=== PATIENT | female | born 1975 | race Caucasian/White ===

== ENCOUNTER 2021-08-11 08:30 | Emergency (ER) | payer OTHER ==
[~2021-08-11 08:30] MED LIST: KEFLEX250 MG PO; NORCO 5-325 TA1 EACH PO; PERCOCET 5-3251 EACH PO; ZOFRAN8 MG PO
[2021-08-11] MEDS ORDERED: MEDROL 4MG DOSEP4 MG PO (10:42)
[2021-08-11] MEDS ORDERED: NORCO 5-325 TA1 EACH PO (10:42)
== END 2021-08-11 10:52 | disposition home or self-care (01) ==
LOC: FER 08:30
DX: M54.50 Low back pain, unspecified (principal); M54.6 Pain in thoracic spine; I10 Essential (primary) hypertension; V49.50XA Passenger injured in collision with unspecified motor vehicles in traffic accident, initial encounter; Y92.410 Unspecified street and highway as the place of occurrence of the external cause
CPT/HCPCS: 72128; 72131